=== PATIENT | female | born 1970 | race Caucasian/White ===

== ENCOUNTER 2017-09-20 11:47 | Emergency (ER) | payer OTHER ==
[~2017-09-20] VITALS: Ht 165.1 cm; Wt 104.3 kg
[2017-09-20] MEDS ORDERED: NEURONTIN600 MG PO (12:00)
[2017-09-20] MEDS ORDERED: UNICOMPLEX M TA1 TA1 PO (12:01)
[2017-09-20] MEDS ORDERED: VITAMIN B-12500 MCG PO (12:01)
[2017-09-20] MEDS ORDERED: VITAMINC500 PO (12:01)
[2017-09-20] MEDS ORDERED: ZANAFLEX4 MG PO (12:01)
[2017-09-20] MEDS ORDERED: VITAMIN D2000 UNIT PO (12:02)
[2017-09-20] MEDS ORDERED: PROBIOTIC1 EAC1 PO (12:02)
[2017-09-20] MEDS ORDERED: HYDROCODONE-AP1 EAC6 PO (12:02)
[2017-09-20] MEDS ORDERED: COLACE100 MG PO (12:02)
[2017-09-20] MEDS ORDERED: PROZAC20 MG PO (12:03)
[2017-09-20] MEDS ORDERED: XANAX 0.5 MG0.5 MG PO (12:03)
[2017-09-20 12:06] LABS: ABSOLUTE BASOPHILS 0.1 thou/uL (0.0-0.2); ABSOLUTE EOSINOPHILS 0.2 thou/uL (0.0-0.7); ABSOLUTE LYMPHOCYTES 3.3 thou/uL (0.8-5.3); ABSOLUTE MONOCYTES 0.8 thou/uL (0.0-1.2); ABSOLUTE NEUTROPHILS 10.1 thou/uL (1.6-8.1); BASOPHILS 0.6 %; EOSINOPHILS 1.1 %; HEMATOCRIT 42.9 % (37.0-47.0); HEMOGLOBIN 14.6 gm/dL (12.0-15.0); LYMPHOCYTES 22.7 %; MCH 33.9 pg (26.0-34.0); MCV 99.7 fL (80.0-100.0); MONOCYTES 5.4 %; MPV 7.4 fl. (7.2-11.1); NUCLEATED RBCS 0 /100WBC; PLATELET COUNT* 323 thou/uL (150-400); POLYS 70.2 %; RDW-CV 13.2 % (10.5-14.5); WBC 14.4 thou/uL (4.0-11.0)
[2017-09-20 12:11] LABS: ANION GAP 8 mmol/L (7-16); BUN 10 mg/dL (7-18); CALCIUM 8.6 mg/dL (8.5-10.1); CHLORIDE 103 mmol/L (98-107); CO2 29 mmol/L (21-32); CREATININE 0.7 mg/dL (0.6-1.3); GLUCOSE 106 mg/dL (70-99); POTASSIUM 3.6 mmol/L (3.5-5.1); SODIUM 140 mmol/L (136-145)
[2017-09-20 12:22] LABS: ALBUMIN 3.5 g/dL (3.4-5.0); ALKALINE PHOSPHATASE 93 U/L (46-116); LIPASE 77 U/L (73-393); MAGNESIUM 1.8 mg/dL (1.8-2.4); NT-PRO BRAIN NAT PEPTIDE 30 pg/mL (<300); SGOT 22 U/L (15-37); SGPT 25 U/L (30-65); TOTAL BILIRUBIN 0.2 mg/dL (<0.1-1.0); TOTAL PROTEIN 7.5 g/dL (6.4-8.2); TROPONIN-I LEVEL <0.06 ng/mL (<0.06)
[2017-09-20] MEDS ORDERED: LIDODERM1 EACH TRANSDERM (13:10)
[2017-09-20] MEDS ORDERED: PERCOCET PO (13:37)
[2017-09-20 13:53] VITALS: BP 135/67
--- NOTE | 2017-09-20 15:11 | EKG ---
[place] [address] ELECTROCARDIOGRAM REPORT Name: AMINTAKRISTINZBIGNIEW N Room: [facility]#: [id number] Admission: 09/20/17 Attend Phys: Discharge: 09/20/17 Date of : 72 Report #: [id number] THIS REPORT FOR: //name// [facility] ED Test Date: 2017-09-20 Test Time: 11:52:11 Pat Name: ZBIGNIEW LEMOS Department: Room: Gender: F Prosecuting Attorney: TS : 1970 Requested By: Channing Escamilla Order Number: [id number] MD: Domingo Irving Measurements Intervals [place] Rate: 108 P: 62 [place]: 158 QRS: 49 QRSD: 98 T: 36 QT: 330 QTc: 443 Interpretive Statements Sinus tachycardia Compared to ECG 06/14/2006 06:29:00 Sinus rhythm no longer present Electronically Signed On 09-20-2017 15:11:31 CDT by Domingo Irving [email or web address] <ELECTRONICALLY SIGNED> By: Domingo Irving MD, [facility] 09/20/17 1511 1152 1152 Domingo Irving MD, FACC /EPI
== END 2017-09-20 13:54 | disposition home or self-care (01) ==
LOC: M.ERS 11:47
PROVIDERS: Emergency Medicine Emergency Medical Services
DX: R07.89 Other chest pain (principal); F17.200 Nicotine dependence, unspecified, uncomplicated; Z90.89 Acquired absence of other organs; Z88.1 Allergy status to other antibiotic agents; Z88.5 Allergy status to narcotic agent

== ENCOUNTER 2017-11-26 12:46 | Emergency (ER) | payer OTHER ==
[~2017-11-26] VITALS: Ht 165.1 cm; Wt 113.4 kg
[~2017-11-26 12:46] MED LIST: COLACE100 MG PO; HYDROCODONE-AP1 EAC6 PO; LIDODERM1 EACH TRANSDERM; NEURONTIN600 MG PO; PERCOCET PO; PROBIOTIC1 EAC1 PO; PROZAC20 MG PO; UNICOMPLEX M TA1 TA1 PO; VITAMIN B-12500 MCG PO; VITAMIN D2000 UNIT PO; VITAMINC500 PO; XANAX 0.5 MG0.5 MG PO; ZANAFLEX4 MG PO
[2017-11-26] MEDS ORDERED: VALIUM5 MG PO (13:03)
[2017-11-26] MEDS ORDERED: NAPROSYN500 MG PO (13:03)
[2017-11-26] MEDS ORDERED: FLEXERIL PO (13:04)
[2017-11-26] MEDS ORDERED: ZINC CHELATE50 MG PO (13:04)
[2017-11-26] MEDS ORDERED: PRILOSEC 20 MG20 MG PO (13:04)
[2017-11-26] MEDS ORDERED: SUDAFED 12 HOU120 MG PO (13:05)
[2017-11-26] MEDS ORDERED: [UNRECOGNIZED DRUG - REMARK] (13:06)
[2017-11-26 13:16] LABS: MCH 31.2 pg (26.0-34.0); MCHC 33.4 g/dL (28.0-37.0); MCV 93.3 fL (80.0-100.0); MPV 7.4 fl. (7.2-11.1); NUCLEATED RBCS 0 /100WBC; PLATELET COUNT* 437 thou/uL (150-400); RBC 4.18 mil/uL (4.20-5.00); RDW-CV 14.6 % (10.5-14.5); WBC 4.5 thou/uL (4.0-11.0)
[2017-11-26 13:24] LABS: CALCIUM 9.4 mg/dL (8.5-10.1); CREATININE 0.7 mg/dL (0.6-1.3); POTASSIUM 4.2 mmol/L (3.5-5.1)
[2017-11-26 13:33] LABS: BASOPHILS 0.5 %; EOSINOPHILS 0.7 %; MONOCYTES 6.2 %; POLYS 67.6 %
[2017-11-26 13:34] LABS: ABSOLUTE BASOPHILS 0.1 thou/uL (0.0-0.2); ABSOLUTE EOSINOPHILS 0.1 thou/uL (0.0-0.7); ABSOLUTE MONOCYTES 0.7 thou/uL (0.0-1.2)
[2017-11-26 13:40] LABS: ALBUMIN 3.5 g/dL (3.4-5.0); TOTAL BILIRUBIN 0.3 mg/dL (<0.1-1.0); TOTAL PROTEIN 7.6 g/dL (6.4-8.2)
[2017-11-26] MEDS ORDERED: VENTOLIN HFA 1818 GM INH (15:10)
[2017-11-26] MEDS ORDERED: TRIMETHOPRIM /P10 M1 OPHTHALMIC (15:10)
[2017-11-26] MEDS ORDERED: TESSALON PERLE100 MG PO (15:11)
[2017-11-26 15:21] VITALS: BP 123/78
== END 2017-11-26 15:22 | disposition home or self-care (01) ==
LOC: M.ERS 12:46
PROVIDERS: Nurse Practitioner Family
DX: J20.9 Acute bronchitis, unspecified (principal); H10.9 Unspecified conjunctivitis; F17.210 Nicotine dependence, cigarettes, uncomplicated; Z88.1 Allergy status to other antibiotic agents; Z88.6 Allergy status to analgesic agent

== ENCOUNTER → 2018-02-21 | Outpatient (CLI) | payer OTHER ==
[~2018-02-21] MED LIST changes: +FLEXERIL PO; +NAPROSYN500 MG PO; +PRILOSEC 20 MG20 MG PO; +SUDAFED 12 HOU120 MG PO; +TESSALON PERLE100 MG PO; +TRIMETHOPRIM /P10 M1 OPHTHALMIC; +VALIUM5 MG PO; +VENTOLIN HFA 1818 GM INH; +ZINC CHELATE50 MG PO; +[UNRECOGNIZED DRUG - REMARK]
== END ==
LOC: M.CT 02-17 14:15
DX: Z13.6 Encounter for screening for cardiovascular disorders (principal)

== ENCOUNTER 2018-06-11 09:30 | Emergency (ER) | payer OTHER ==
[~2018-06-11] VITALS: Ht 165.1 cm; Wt 97.5 kg
[2018-06-11] MEDS ORDERED: VITAMIN D3400 UNIT PO (09:42)
[2018-06-11] MEDS ORDERED: UNICOMPLEX M TA1 TA1 PO (09:42)
[2018-06-11] MEDS ORDERED: VITAMIN B-12500 MCG PO (09:42)
[2018-06-11] MEDS ORDERED: ABILIFY 2 MG2 M1 PO (09:43)
[2018-06-11] MEDS ORDERED: ZANAFLEX4 MG PO (09:43)
[2018-06-11] MEDS ORDERED: CYMBALTA60 MG PO (09:43)
[2018-06-11] MEDS ORDERED: NORCO 5-325 TA1 EACH PO (09:44)
[2018-06-11] MEDS ORDERED: FLEXERIL PO (09:44)
[2018-06-11] MEDS ORDERED: XANAX 0.5 MG0.5 MG PO (09:44)
[2018-06-11] MEDS ORDERED: ZANTAC 150MG T150 MG PO (09:45)
[2018-06-11] MEDS ORDERED: FLONASE 0.05%50 MCG NASAL (09:45)
[2018-06-11] MEDS ORDERED: ALLEGRA-D 24 H1 EACH PO (09:46)
[2018-06-11 10:40] LABS: ABSOLUTE EOSINOPHILS 0.1 thou/uL (0.0-0.7); ABSOLUTE LYMPHOCYTES 1.4 thou/uL (0.8-5.3); ABSOLUTE MONOCYTES 0.6 thou/uL (0.0-1.2); ABSOLUTE NEUTROPHILS 3.4 thou/uL (1.6-8.1); BASOPHILS 0.6 %; EOSINOPHILS 1.2 %; HEMATOCRIT 43.1 % (37.0-47.0); MCH 34.4 pg (26.0-34.0); MCHC 34.8 g/dL (28.0-37.0); MCV 98.8 fL (80.0-100.0); MONOCYTES 10.5 %; MPV 7.4 fl. (7.2-11.1); NUCLEATED RBCS 0 /100WBC; PLATELET COUNT* 294 thou/uL (150-400); POLYS 61.7 %; RBC 4.36 mil/uL (4.20-5.00); RDW-CV 13.5 % (10.5-14.5); WBC 5.5 thou/uL (4.0-11.0)
[2018-06-11 10:52] LABS: ALBUMIN 3.4 g/dL (3.4-5.0); CALCIUM 8.8 mg/dL (8.5-10.1); CREATININE 0.8 mg/dL (0.6-1.3); POTASSIUM 4.1 mmol/L (3.5-5.1); TOTAL BILIRUBIN 0.2 mg/dL (<0.1-1.0); TOTAL PROTEIN 7.1 g/dL (6.4-8.2)
[2018-06-11] MEDS ORDERED: HYDROCODONE-AP1 EAC6 PO (11:51)
[2018-06-11 11:59] VITALS: BP 118/62
== END 2018-06-11 12:00 | disposition home or self-care (01) ==
LOC: M.ERS 09:30
PROVIDERS: Emergency Medicine Emergency Medical Services
DX: L03.211 Cellulitis of face (principal); F17.210 Nicotine dependence, cigarettes, uncomplicated; Z88.1 Allergy status to other antibiotic agents; Z88.6 Allergy status to analgesic agent; Z88.8 Allergy status to other drugs, medicaments and biological substances; Z98.890 Other specified postprocedural states